=== PATIENT | male | born 1940 | race Two or more races ===

== ENCOUNTER → 2025-10-01 | Emergency (ER) | payer OTHER ==
[~2025-10-01] VITALS: Ht 175.3 cm; Wt 87.1 kg
[~2025-10-01] MED LIST: BENZONATATE 200 MG CAPSULE PO ONE; CEFTRIAXONE SODIUM 1,000 MG VIAL IM ONE; FLOMAX; LIPITOR40 M1; OSEL75CA PO; PEPCID AC20 MG PO; TRIJARDY XR 101 EACH; VASOTEC5 MG
[2025-10-01 21:13] LABS: BASO % 0.4 % (0.1-1.2); EOS # 0.10 (0.04-0.54); EOS % 1.3 % (0.7-7.0); LYMPH # 1.82 (1.18-3.74); LYMPH % 23.9 % (19.3-53.1); MEAN PLATELET VOLUME 11.40 fl (9.4-12.4); MONO # 1.63 (0.24-0.82); NEUT # 4.00 (1.56-6.13); NEUT % 52.7 % (34.0-71.1); RED CELL DISTRIBUTION WIDTH 12.0 % (11.6-14.4)
[2025-10-01 21:16] LABS: MONO % 21.4 % (4.7-12.5)
[2025-10-01 21:57] LABS: COVID-19 AG NEGATIVE (NEGATIVE)
== END | disposition home or self-care (01) ==
LOC: ER 16:02
PROVIDERS: General Practice
DX: J10.1 Influenza due to other identified influenza virus with other respiratory manifestations (principal); Z20.822 Contact with and (suspected) exposure to COVID-19; E11.9 Type 2 diabetes mellitus without complications; Z79.84 Long term (current) use of oral hypoglycemic drugs; I10 Essential (primary) hypertension